=== PATIENT | male | born 1940 | race Caucasian/White ===

== ENCOUNTER → 2016-07-11 | Day surgery (SDC) | payer OTHER ==
[2016-06-30 11:56] VITALS: BMI 29.0
[~2016-07-11] VITALS: Ht 175.3 cm; Wt 90.9 kg
[~2016-07-11] MED LIST: CLR10 PO; DUTA0.5C PO; LIDOCAINE HCL 2% 2 ML VIAL (20MG/ML) ONE; LSN/10125 PO; MAGN1TAB19 PO; METF-384 PO; MIDAZOLAM HCL 1 MG/ML 2ML VIAL ONE; ONDANSETRON INJ 2 MG/ML 2 ML VIAL ONE; POTA10TA PO; PRAV40TA PO; PROPOFOL IV EMULSION 10 MG/ML 20 ML VIAL IV ONE; RIVA1TAB4 PO; SODIUM CHLORIDE 0.9% 500ML 500 ML IV ONE; TAMS0.4C38 PO
[2016-07-11 10:43] VITALS: Ht 175.3 cm; Wt 90.9 kg
--- NOTE | 2016-07-11 10:57 | Endo History and Physical ---
History & Physical Date of Service: Jul 11, 2016. Chief Complaint: SCREENING FAMILY HISTORY COLON CA Referring Physician: CLEVELAND CAMPOS History of Present Illness 76 yo CM who presents for colonoscopy secondary to family history of colon cancer in mother. Past Surgical History Hx Cardiac Surgery: No Hx Internal Defibrillator: No Hx Pacemaker: No Hx Abdominal Surgery: No Hx of Implantable Prosthesis: No Hx Post-Op Nausea and Vomiting: No Hx Cancer Surgery: No Hx Thoracic Surgery: No Hx Orthopedic: No Hx Urinary Tract Surgery: No Family History Colon CA Social History Smoking Status: Never Smoker Hx Substance Use: No Hx Alcohol Use: Yes (1 BEER/DAY) Allergies Coded Allergies: No Known Allergies (Unverified , 07/11/16) Current Medications Reported Home Medications Medications Dose Route/Sig Max Daily Dose Days Date Category Claritin (Loratadine) 10 Mg Tab 10 Mg PO QAM 06/30/16 Reported Xarelto (Rivaroxaban) 20 Mg Tab 20 Mg PO HS 06/30/16 Reported Flomax (Tamsulosin Hcl) 0.4 Mg Cap 0.4 Mg PO HS 06/30/16 Reported Pravachol (Pravastatin Sodium) 40 Mg Tab 1 Tab PO HS 06/30/16 Reported K-Tabs (Potassium Chloride) 10 Meq Tab 1 Tab PO HS 06/30/16 Reported Glucophage (Metformin Hcl) 1,000 Mg Tab 1,000 Mg PO QAM 06/30/16 Reported Magnesium Oxide (Magnesium Oxide (Mg Supplement) 400 Mg Tab 1 Tab PO QAM 06/30/16 Reported Lisinopril/Hctz 10/12.5 Mg (HCTZ/Lisinopril) 1 Ea Tab 1 Tab PO QAM 06/30/16 Reported Avodart (Dutasteride) 0.5 Mg Cap 0.5 Mg PO HS 06/30/16 Reported Vital Signs Weight (Kilograms): 90.91 Height (Feet): 5 Height (Inches): 9 Date Time Temp Pulse Resp B/P Pulse Ox O2 Delivery O2 Flow Rate FiO2 07/11/16 10:49 36.6 67 18 185/83 95 Room Air Physical Exam General Appearance: WD/WN, no apparent distress Respiratory/Chest: Auscultation: breath sounds normal Cardiovascular: Heart Auscultation: RRR Abdomen: Bowel Sounds: normal Inspection & Palpation: soft, non-distended, no tenderness, guarding & rebound Assessment and Plan Assessment: 76 yo CM who presents for colonoscopy secondary to family history of colon cancer in mother. Plan: Proceed with colonoscopy.
--- NOTE | 2016-07-11 11:44 | Discharge Instructions ---
Endoscopy Patient Instructions Date / Procedure(s) Performed Jul 11, 2016. Colonoscopy Allergy Information Coded Allergies: No Known Allergies (Unverified , 07/11/16) Discharge Date / Findings Jul 11, 2016. Colon polyp External hemorrhoids Medication Instructions Stopped Medication(s): METFORMIN XARELTO OK to resume all medications today as prescribed Reported Home Medications Medications Dose Route/Sig Max Daily Dose Days Date Category Claritin (Loratadine) 10 Mg Tab 10 Mg PO QAM 06/30/16 Reported Xarelto (Rivaroxaban) 20 Mg Tab 20 Mg PO HS 06/30/16 Reported Flomax (Tamsulosin Hcl) 0.4 Mg Cap 0.4 Mg PO HS 06/30/16 Reported Pravachol (Pravastatin Sodium) 40 Mg Tab 1 Tab PO HS 06/30/16 Reported K-Tabs (Potassium Chloride) 10 Meq Tab 1 Tab PO HS 06/30/16 Reported Glucophage (Metformin Hcl) 1,000 Mg Tab 1,000 Mg PO QAM 06/30/16 Reported Magnesium Oxide (Magnesium Oxide (Mg Supplement) 400 Mg Tab 1 Tab PO QAM 06/30/16 Reported Lisinopril/Hctz 10/12.5 Mg (HCTZ/Lisinopril) 1 Ea Tab 1 Tab PO QAM 06/30/16 Reported Avodart (Dutasteride) 0.5 Mg Cap 0.5 Mg PO HS 06/30/16 Reported Provider Instructions Activity Restrictions - No exercising or heavy lifting for 24 hours. - Do not drink alcohol the day of the procedure. - Do not drive a car or operate machinery until the day after the procedure. - Do not make any important decisions or sign important papers in 24 hours after the procedure. Following Day: - Return to full activity which may include returning to work/school. Diet Start your diet with liquids and light foods (jello, soup, juice, toast). Then eat your usual diet if not nauseated. Treatment For Common After Affects For mild abdominal pain, bloating, or excessive gas: - Rest - Eat lightly - Lie on right side Follow-Up Information Follow-up with CLEVELAND CAMPOS as scheduled Anesthesia Information What You Should Know You have had a procedure that required some medicine to reduce anxiety and discomfort. This treatment is called moderate sedation. After receiving the treatment, you may be sleepy, but you will be able to breathe on your own. The effects of the treatment may last for several hours. Follow these instructions along with Activity/Diet recommendations noted above: * Do NOT do anything where dizziness or clumsiness would be dangerous. * Rest quietly at home today, then you can be up and about tomorrow. * Have a responsible person stay with you the rest of today. * You may have had an I.V. today. If so, you may take the dressing off later today. Recommendations Call your doctor if: * Trouble breathing * Continuous vomiting for more than 24 hours * Temperature above 101 degrees * Severe abdominal pain or bloating * Pain not relieved by pain medicine ordered * There is increased drainage or redness from any incision * A large amount of rectal bleeding greater than 2-3 tablespoons. (If you had a polyp/s removed or have hemorrhoids, a small amount of blood - from the rectum is to be expected.) * You have any unanswered questions or concerns. IN THE EVENT OF A SERIOUS EMERGENCY, GO TO THE NEAREST EMERGENCY ROOM Your discharge instructions were prepared by provider Salvatore Silva. Patient Instructions Signature Page Steven Johnson Patient (or Guardian) Signature/Date: I have read and understand the instructions given to me by my caregivers. Caregiver/RN/Doctor Signature/Date: The above-named patient and/or guardian has received patient instructions on this date. + Original Patient Signature Page (only) stays with chart. Please make copy for patient.
--- NOTE | 2016-07-11 11:48 | GI REPORT ---
Procedure Date: 07/11/2016 11:20 AM Procedure: Colonoscopy Indications: Family history of colon cancer in a first-degree relative Medicines: Monitored Anesthesia Care Complications: No immediate complications. Estimated Blood Loss: Estimated blood loss: none. Procedure: Pre-Anesthesia Assessment: - Prior to the procedure, a History and Physical was performed, and patient medications and allergies were reviewed. The patient's tolerance of previous anesthesia was also reviewed. The risks and benefits of the procedure and the sedation options and risks were discussed with the patient. All questions were answered, and informed consent was obtained. Prior Anticoagulants: The patient has taken Xarelto (rivaroxaban), last dose was 2 days prior to procedure. ASA Grade Assessment: II - A patient with mild systemic disease. After reviewing the risks and benefits, the patient was deemed in satisfactory condition to undergo the procedure. After I obtained informed consent, the scope was passed under direct vision. Throughout the procedure, the patient's blood pressure, pulse, and oxygen saturations were monitored continuously. The scope was introduced through the anus and advanced to the terminal ileum. The colonoscopy was performed without difficulty. The patient tolerated the procedure well. The quality of the bowel preparation was good. The terminal ileum, ileocecal valve, appendiceal orifice, and rectum were photographed. Findings: A 6 mm polyp was found in the transverse colon. The polyp was sessile. The polyp was removed with a hot snare. Resection and retrieval were complete. Non-bleeding external hemorrhoids were found during perianal exam. The hemorrhoids were medium-sized. Impression: - One 6 mm polyp in the transverse colon, removed with a hot snare. Resected and retrieved. - Non-bleeding external hemorrhoids. Recommendation: - Resume previous diet. - Continue present medications. - Repeat colonoscopy for surveillance based on pathology results. - Return to primary care physician as previously scheduled. Salvatore Silva, DO 07/11/2016 11:48:29 AM This report has been signed electronically. Note Initiated On: 07/11/2016 11:20 AM I attest to the content of the Intraoperative Record and orders documented therein, exceptions below
[2016-07-11 12:10] VITALS: BP 143/75; PULSE 58; O2SAT 93
--- NOTE | 2016-07-11 12:34 | Anesthesiology Progress Note ---
Anesthesia Post Op Note Date & Time Jul 11, 2016 at 12:34 Vital Signs Pain Intensity: 0 Vital Signs Past 12 Hours Date Time Temp Pulse Resp B/P Pulse Ox O2 Delivery O2 Flow Rate FiO2 07/11/16 12:10 58 16 143/75 93 Room Air 07/11/16 11:55 55 16 129/73 93 Room Air 07/11/16 11:40 55 16 112/59 93 Room Air 07/11/16 10:49 36.6 67 18 185/83 95 Room Air Notes Mental Status: alert / awake / arousable, participated in evaluation Pt Amnestic to Procedure: Yes Nausea / Vomiting: adequately controlled Pain: adequately controlled Airway Patency, RR, SpO2: stable & adequate BP & HR: stable & adequate Hydration State: stable & adequate Anesthetic Complications: no major complications apparent
== END | disposition home or self-care (01) ==
LOC: C.GI 10:07
PROVIDERS: ATTEND Internal Medicine
DX: Z12.11 Encounter for screening for malignant neoplasm of colon (principal); D12.3 Benign neoplasm of transverse colon; K64.8 Other hemorrhoids; Z80.0 Family history of malignant neoplasm of digestive organs

== ENCOUNTER → 2016-11-16 | Outpatient (CLI) | payer OTHER ==
[~2016-11-16] MED LIST changes: -LIDOCAINE HCL 2% 2 ML VIAL (20MG/ML) ONE; -MIDAZOLAM HCL 1 MG/ML 2ML VIAL ONE; -ONDANSETRON INJ 2 MG/ML 2 ML VIAL ONE; -PROPOFOL IV EMULSION 10 MG/ML 20 ML VIAL IV ONE; -SODIUM CHLORIDE 0.9% 500ML 500 ML IV ONE
[2016-11-16 11:26] LABS: ALT/SGPT 22 U/L (12-78); AST/SGOT 18 U/L (15-37); BLOOD UREA NITROGEN 21 mg/dl (7-18); BUN/CREATININE RATIO 19.5 (10-20); CALCIUM 8.3 mg/dl (8.5-10.1); CARBON DIOXIDE 26 mmol/L (21-32); CHLORIDE 107 mmol/L (98-107); GLUCOSE 111 mg/dl (70-99); POTASSIUM 3.9 mmol/L (3.5-5.1); SODIUM 142 mmol/L (136-145)
[2016-11-16 11:40] LABS: ALKALINE PHOSPHATASE 51 U/L (45-117); CHOLESTEROL 166 mg/dl (0-200); CHOLESTEROL/HDL RATIO 4.6; HDL CHOLESTEROL 36 mg/dl; LDL CHOLESTEROL CALCULATED 92 mg/dl; TRIGLYCERIDES 191 mg/dl (0-150); VERY LOW DENSITY LIPOPROT CALC 38 mg/dl
[2016-11-16 11:51] LABS: ESTIMATED AVERAGE GLUCOSE 126 mg/dl; HA1C FLAG Normal (Normal)
--- NOTE | 2016-11-22 10:05 | CODING QUERY MEDICAL NECESSITY ---
SUPPORTING DIAGNOSIS NEEDED Dr. Cartwright, A supporting diagnosis is required for the test/procedure performed on this patient in order for us to be reimbursed by the patient's insurance. Please provide a supporting diagnosis for the following test/procedure listed below next to the test name along with your signature. *If there is no additional diagnosis for this patient that would support the following test/procedure please document that below next to the test/procedure. Test(s)/Procedure(s) that require a supporting diagnosis: * 70250 GLYCATED HEMOGLOBIN DIAGNOSIS: DATE OF SERVICE: 11/16/16 Provider Signature: Date: Thank you Boy Fitzgerald [facility] Information Management Once completed, please kindly fax back to [phone] For questions please call [phone]
== END | disposition home or self-care (01) ==
LOC: C.LABBC 08:32
PROVIDERS: ATTEND Family Medicine
DX: E78.5 Hyperlipidemia, unspecified (principal); I10 Essential (primary) hypertension; N40.0 Benign prostatic hyperplasia without lower urinary tract symptoms; I48.91 Unspecified atrial fibrillation; R73.03 Prediabetes

== ENCOUNTER → 2017-06-29 | Outpatient (CLI) | payer OTHER ==
--- NOTE | 2017-06-29 11:07 | DIAGNOSTIC IMAGING REPORT ---
RENAL ULTRASOUND HISTORY: R33.9 Incomplete bladder [id number] COMPARISON: None. FINDINGS: Right kidney: 11.1 cm. No hydronephrosis. Normal corticomedullary differentiation and cortical thickness. Left kidney: 11.4 cm. No hydronephrosis. Normal corticomedullary differentiation and cortical thickness. Bladder: No bladder wall thickening. The bilateral ureteral jets were identified. Prevoid volume of the bladder is 350 cc. Postvoid residual is 314 cc. The prostate is enlarged measuring 4.8 cm. IMPRESSION: 1. Normal kidneys. No hydronephrosis. 2. Post void residual of 314 cc. Electronically signed by: Claus Greer M.D. 06/29/2017 11:05 AM Dictated Date/Time: 06/29/2017 11:04 AM
== END | disposition home or self-care (01) ==
LOC: C.ULTR 10:35
PROVIDERS: ATTEND Urology
DX: R33.9 Retention of urine, unspecified (principal)

== ENCOUNTER → 2017-07-07 | Outpatient (CLI) | payer OTHER | END | disposition home or self-care (01) | LOC: C.LABBC 11:19 | PROVIDERS: ATTEND Urology | DX: R33.9 Retention of urine, unspecified (principal) ==

== ENCOUNTER → 2017-09-07 | Outpatient (CLI) | payer OTHER ==
[2017-09-07 13:35] LABS: BASO % 0.5 %; BASO ABS # 0.04 K/uL (0-0.2); EOS % 3.2 %; EOS ABS # 0.28 K/uL (0-0.5); HEMATOCRIT 46.3 % (42-52); HEMOGLOBIN 15.8 g/dL (14.0-18.0); IG# 0.02 K/uL (0.00-0.02); LYMPH % 41.6 %; LYMPH ABS # 3.64 K/uL (1.2-3.4); MEAN CORPUSCULAR HEMOGLOBIN 31.4 pg (25-34); MEAN CORPUSCULAR HGB CONC 34.1 g/dl (32-36); MEAN PLATELET VOLUME 11.1 fL (7.4-10.4); MONO % 10.3 %; NEUT % 44.2 %; NEUT ABS # 3.86 K/uL (1.4-6.5); PLATELET COUNT 200 K/uL (130-400); RED CELL DISTRIBUTION WIDTH CV 13.4 % (11.5-14.5); WHITE BLOOD COUNT 8.74 K/uL (4.8-10.8)
[2017-09-07 14:11] LABS: ALBUMIN 3.4 gm/dl (3.4-5.0); ALT/SGPT 22 U/L (12-78); AST/SGOT 15 U/L (15-37); BLOOD UREA NITROGEN 25 mg/dl (7-18); CALCIUM 8.3 mg/dl (8.5-10.1); CARBON DIOXIDE 26 mmol/L (21-32); CREATININE 1.08 mg/dl (0.60-1.40); GLUCOSE 119 mg/dl (70-99); POTASSIUM 4.2 mmol/L (3.5-5.1); SODIUM 138 mmol/L (136-145)
[2017-09-07 14:15] LABS: HEMOGLOBIN A1C 6.2 % (4.5-5.6)
[2017-09-07 14:20] LABS: ALKALINE PHOSPHATASE 50 U/L (45-117); CHOLESTEROL 131 mg/dl (0-200); LDL CHOLESTEROL CALCULATED 70 mg/dl; TOTAL PROTEIN 6.9 gm/dl (6.4-8.2)
== END | disposition home or self-care (01) ==
LOC: C.LABBC 10:29
PROVIDERS: ATTEND Nurse Practitioner Family
DX: E78.5 Hyperlipidemia, unspecified (principal); I10 Essential (primary) hypertension; E88.81 Metabolic syndrome and other insulin resistance; I48.91 Unspecified atrial fibrillation; R79.0 Abnormal level of blood mineral; R73.03 Prediabetes

== ENCOUNTER 2022-12-16 08:58 | Inpatient (IN) ==
[2022-12-16] MEDS ORDERED: ALBUT/IPRATROP 3MG/0.5MG NEB 3 ML VIAL NEB STA ×2 (09:50→11:39)
[2022-12-16 09:52] LABS: Basophils # (auto) 0.05 K/uL (0-0.2); Basophils % (auto) 0.3 %; Eosinophils # (auto) 0.08 K/uL (0-0.50); Eosinophils % (auto) 0.5 %; Hematocrit (blood only) 44.2 % (42.0-52.0); Hemoglobin 15.3 g/dl (14.0-18.0); Immature Granulocytes # (auto) 0.06 K/uL (0.01-0.20); Immature Granulocytes % (auto) 0.4 %; Lymphocytes # (auto) 2.56 K/uL (1.2-3.4); Lymphocytes % (auto) 17.1 %; Mean Corpuscular Hemoglobin 31.2 pg (25.0-34.0); Mean Corpuscular Hgb Conc 34.6 g/dL (32.0-36.0); Monocytes # (auto) 1.76 K/uL (0.11-0.59); Monocytes % (auto) 11.8 %; Neutrophils # (auto) 10.46 K/uL (1.40-6.50); Neutrophils % (auto) 69.9 %; Platelet Count 204 K/uL (130-400); RDW Coefficient of Variation 13.9 % (11.5-14.5); RDW Standard Deviation 46.1 fL (36.4-46.3); Red Blood Count 4.91 M/uL (4.70-6.10); White Blood Count 14.97 K/ul (4.8-10.8)
--- NOTE | 2022-12-16 10:10 | XRay Report ---
XR chest 1V portable HISTORY: 82 years-old Male Dyspnea acute shortness of breath COMPARISON: 07/15/2022, 03/31/2022 TECHNIQUE: AP view of the chest FINDINGS: Cardiac mediastinal and hilar silhouettes are unchanged. Subcentimeter calcified granuloma of the rig ht upper lobe. Azygous lobe and fissure. Chronic right hemidiaphragmatic elevation. No pneumothorax, pleural effusion, airspace consolidation or pulmonary edema. Spondylotic spurring of the spine. IMPRESSION: No acute process. ACT 112: Negative or not required by law. The above report was generated using voice recognition software. It may contain grammatical, syntax o r spelling errors. Electronically signed by: Molina Samuel M.D. 12/16/2022 10:09 AM
[2022-12-16 10:14] LABS: Alanine Aminotransferase 14 U/L (7-52); Albumin Globulin Ratio 1.2 (0.9-2); Albumin Level 4.1 gm/dl (3.4-5.0); Alkaline Phosphatase 50 U/L (34-104); Anion Gap 9 (3-11); BUN Creatinine Ratio 26.6 (10-20); Blood Urea Nitrogen 25 mg/dl (6-23); Calcium 9.1 mg/dl (8.6-10.3); Carbon Dioxide 26 mmol/L (21-32); Chloride 104 mmol/L (98-107); Creatinine Clr Calc Pharmacy 61.6 ml/min; Est GFR (African American) 87.8 ml/min; Est GFR (Non-African American) 75.7 ml/min; Globulin 3.5 gm/dl (2.5-4.0); Glucose 132 mg/dl (70-99(Fasting)); Magnesium 1.9 mg/dl (1.7-2.4); Sodium 139 mmol/L (136-145); Total Protein 7.6 gm/dl (6.0-8.3)
[2022-12-16] MEDS ORDERED: OPTIRAY 320 125ml IV ONE (10:56)
[2022-12-16 10:58] LABS: Adenovirus PCR Not Detected (NotDetected); Bordetella parapertussis PCR Not Detected (NotDetected); Bordetella pertussis PCR Not Detected (NotDetected); Chlamydia pneumoniae PCR Not Detected (NotDetected); Coronavirus 229E PCR Not Detected (NotDetected); Coronavirus CoV-2 (COVID19)PCR Not Detected (NotDetected); Coronavirus HKU1 PCR Not Detected (NotDetected); Coronavirus NL63 PCR Not Detected (NotDetected); Coronavirus OC43PCR Not Detected (NotDetected); Human Metapneumovirus PCR Not Detected (NotDetected); Influenza A PCR Not Detected (NotDetected); Influenza B PCR Not Detected (NotDetected); Mycoplasma pneumoniae PCR Not Detected (NotDetected); Parainfluenza Virus 1 PCR Not Detected (NotDetected); Parainfluenza Virus 2 PCR Not Detected (NotDetected); Parainfluenza Virus 3 PCR Not Detected (NotDetected); Parainfluenza Virus 4 PCR Not Detected (NotDetected); Respiratory Syncytial VirusPCR Not Detected (NotDetected); Rhinovirus/Enterovirus PCR Not Detected (NotDetected)
[2022-12-16 11:06] LABS: Potassium 3.9 mmol/L (3.5-5.1)
--- NOTE | 2022-12-16 11:09 | CT Scan Report ---
CT angio chest PE protocol CLINICAL HISTORY: PE vs PNA, cough, pain R side TECHNIQUE: Multidetector row helical CT of the chest was performed with angiographic protocol. Brown l and sagittal reformations were obtained. Coronal and sagittal MIPS were obtained from the axial sonu a set and were submitted for review. Automated dose lowering techniques and/or adjustment according to patient size were utilized for this exam. CT DOSE: 764.85 mGy.cm Comparison: Comparison is made to CTA chest 03/31/2022 FINDINGS: Lungs and pleura: Atelectasis versus scarring is seen in the dependent portions of the lungs. Bronchi al wall thickening is seen. Calcified granulomata are seen. Atelectasis is seen in the lower lungs. Heart and pericardium: Heart size is normal. No pericardial effusion. Vessels: No evidence of pulmonary embolism. There is mild atherosclerotic disease. Mediastinum and veronique: Subcentimeter lymph nodes are seen. Chest wall and lower neck: Unremarkable. Abdomen: Unremarkable. Bones: Degenerative changes in the thoracic spine. IMPRESSION: No acute abnormality and in particular no evidence of pulmonary embolus. ACT 112: Negative or not required by law. Electronically signed by: Rell Almazan M.D. 12/16/2022 11:08 AM
[2022-12-16 12:02] LABS: Troponin I High Sensitivity 10.1 pg/ml (0-20)
[2022-12-16] MEDS ORDERED: AZITHROMYCIN 250 MG TAB PO ONE (12:05)
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
[2022-12-16] MEDS ORDERED: GLUCOSE 40% GEL 15 GM TUBE PO PRN (12:50)
[2022-12-16] MEDS ORDERED: DEXTROSE 50% 50 ML SYRINGE IV PRN (12:50)
[2022-12-16] MEDS ORDERED: GLUCOSE 10 TAB/TUBE PO PRN (12:50)
[2022-12-16] MEDS ORDERED: GLUCAGON FOR INJ 1 MG VIAL SQ PRN (12:50)
[2022-12-16] MEDS ORDERED: PHARMACY GLYCEMIC MGMT CONSULT PRN (12:50)
[2022-12-16] MEDS ORDERED: CARBOHYDRATES FOR HYPOGLYCEMIA PO PRN (12:50)
[2022-12-16] MEDS ORDERED: FORMOTEROL 20 MCG/2 ML VIAL NEB STA (13:13)
[2022-12-16] MEDS ORDERED: BUDESONIDE 0.5 MG/2 ML VIAL (PULMICORT) NEB STA (13:13)
[2022-12-16] MEDS ORDERED: METOPROLOL TARTRATE 25 MG TAB PO STA (13:21)
[2022-12-16 14:22] LABS: Appearance Urine Clear (Clear); Bilirubin Urine Negative (Negative); Blood Urine Negative (Negative); Color Urine Yellow; Glucose Urine UA Negative (Negative); Ketones Urine Trace (Negative); Leukocyte Esterase Urine Negative (Negative); Nitrite Urine Negative (Negative); Protein Urine Negative (Negative); Specific Gravity Urine 1.019 (1.000-1.030); Urobilinogen Urine Negative (Negative); pH Urine 5.5 (4.5-7.5)
[2022-12-16] MEDS ORDERED: ACETAMINOPHEN 325 MG TAB PO PRN (14:58)
--- NOTE | 2022-12-16 15:18 | Pharmacy Report ---
Pharmacy Glycemic Short Note 2 - Date of Service December 16, 2022 - Glycemic Short BSG Results (Last 24 hours): 12/16/22 09:15 Glucose 132 H OUTPATIENT ANTIDIABETIC REGIMEN: * metformin 500 bid ASSESSMENT: * Patient admitted with hypoxia, started on steroids. Type 2 diabetic managed only on metformin at home. Plan to start Lantus 0.2 unit/kg daily to be given with IV solumedrol 40 mg daily * Will start novolog stress 2/3 dosing for now PLAN FOR INPATIENT GLYCEMIC CONTROL: * Hold outpatient oral diabetes medications * Basal insulin * Lantus 15 units daily * Bolus insulin * NovoLog per scale ACHS or Q6hrs while NPO * Goal Range: Low 110 mg/dL - High 160 mg/dL * Correction Factor: 25 mg/dL/unit * Nutritional / Prandial insulin per carb ratio of 1 unit per 9 grams CHO consumed
[2022-12-16] MEDS: ALBUT/IPRATROP 3MG/0.5MG NEB 3 ML VIAL NEB SCH ×2 (15:54→19:48)
--- NOTE | 2022-12-16 15:59 | Emergency Department Note ---
Impression & Plan Respiratory failure with hypoxia, Leukocytosis ED Provider Note CHIEF COMPLAINT: Shortness of breath, right-sided chest pain HISTORY OF PRESENT ILLNESS: This 82-year-old male patient with past medical history of type 2 diabetes, atrial fibrillation on chronic anticoagulation, congestive heart failure presents to the emergency department with complaints of worsening right-sided discomfort with deep inspiration over the last 24 hours. Patient states he has had a deep cough that has been "dry." He does have an inhaler at home and cannot remember trying to use it for the symptoms. Patient denies any fevers or pain radiating into the arms of the jaw. He denies a history of COPD and denies smoking cigarettes. He has not noticed any weight gain or ankle swelling. Patient denies wearing oxygen at home. REVIEW OF SYSTEMS: A review of systems was performed with positives and pertin ent negatives listed in the history of present illness. 10 systems were reviewed and are otherwise negative. ALLERGIES: see below MEDICATIONS: see below PMH: see below SOCIAL HISTORY: see below DDx: Reactive airway disease, pneumonia, pneumothorax, COPD, CHF, infections, cardiac ischemia, pulmonary embolism, musculoskeletal, gastrointestinal, as well as other pathologies. PHYSICAL EXAM: Vital signs reviewed. General: Well-appearing 82 yo male, in no significant distress. HEENT: No scleral icterus, PERRLA, neck supple. Atraumatic. Cardiovascular: Regular rate and rhythm, no extra sounds. Pulmonary: Clear to auscultation bilaterally, normal work of breathing. Abdomen: Soft, nontender, nondistended, positive bowel sounds. Musculoskeletal: Atraumatic, no peripheral edema. Neurologic: Patient awake alert and oriented x 3, speech is clear Skin: Warm, dry, no rash EMERGENCY DEPARTMENT COURSE/MDM: This patient was evaluated and appeared to be in no distress. IV access was obtained and laboratory work was drawn. The patient was placed on the statistical assistant. Patient was hydrated with normal saline solution. Chest x-ray was performed and is negative for acute process. Laboratory work is concerning for leukocytosis of 15. Respiratory BioFire panel is negative. CT imaging of the chest was performed and is negative for PE and reveals evidence of atelectasis, no infiltrate. Patient was medicated with p.o. azithromycin 500 mg thinking perhaps he could be discharged at some point. The patient then did desaturate x2 on room air. He was given IV Solu-Medrol as well as DuoNeb treatment x2. Given the patient's shortness of breath, leukocytosis and desaturation on room air, the patient's case was discussed with the hospitalist service to evaluate for further management. MONITORING: An order for cardiac monitoring was placed and the patient is noted to be in a atrial fibrillation at 71 beats per minute. RADIOLOGY: Chest x-ray to my interpretation reveals no evidence of focal lung consolidation or failure. EKG: To my interpretation reveals atrial fibrillation at 79 bpm. Left axis deviation, right bundle branch block, QTc of 573. When compared to previous dated July 15, 2022, nonspecific ST change in the anterior leads are negative. QTc is prolonged DISPOSITION: Admission Past Med/Surg History Medical History Atrial fibrillation BPH with obstruction/lower urinary tract symptoms Cardiac murmur Elevated prostate specific antigen (PSA) H/O homocysteinuria History of colon polyps Hypokalemia Tachycardia Type 2 diabetes mellitus Surgical History H/O colonoscopy H/O wisdom tooth extraction History of tonsillectomy Hx of prostate biopsy Family History Mother Colorectal cancer Aunt Diabetes Grandmother (Maternal) Diabetes Other No family history of adverse response to anesthesia Denies family history of Ovarian cancer Prostate cancer Myocardial infarction Breast cancer Social History Smoking Status: Never smoker Second Hand Exposure: No; Do You Dip or Chew Tobacco: No; Hx Alcohol Use: Yes Alcohol type: beer Alcohol Intake Frequency: 2-3 x/Week Hx Substance Use: No Preferred Language: Slovenian Communication Ability: Effective Visual Impairment: No Limitations Hearing Ability: Normal 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 Beliefs That Will Affect Care: None marital status: Current Living Situation: Spouse current occupational status: retired How many Children do You have: 4 Feels Safe at Home: No Is there a partner from a previous relationship who is making you feel unsafe now?: No Childhood Exposure to Second-Hand Smoke: Yes Diet: regular caffeine: Yes during the past year weight has: remained stable Dental Care, Regularly: Yes Physical Activity Frequency: Daily Seatbelt Use: always Sunscreen Use: Yes Assistive Devices: Glasses Allergies Allergies Allergy/AdvReac Type Severity Reaction Status Date / Time No Known Allergies Allergy Verified 12/16/22 11:43 Home Meds Home Medications Medication Instructions Recorded Confirmed acetaminophen 500 mg tablet 500 mg PO QAM PRN Pain 08/19/21 12/16/22 furosemide 20 mg tablet 20 mg PO DAILY 12/16/22 12/16/22 magnesium oxide 400 mg (241.3 mg 400 mg PO QAM 12/16/22 12/16/22 magnesium) tablet pravastatin 40 mg tablet 40 mg PO HS 12/16/22 12/16/22 rivaroxaban 20 mg tablet (Xarelto) 20 mg PO HS 12/16/22 12/16/22 tamsulosin 0.4 mg capsule 0.8 mg PO HS 12/16/22 12/16/22 Previous Rx's Medication Instructions Recorded diclofenac sodium 1 % topical gel 4 g topical QID PRN Joint Pain 09/16/20 (Voltaren) #100 grams albuterol sulfate 90 mcg/actuation 2 puff inhalation Q6H PRN 01/11/22 aerosol inhaler (ProAir HFA) shortness of breath or wheezing #8.5 grams famotidine 40 mg tablet (Pepcid) 40 mg PO BID #180 tabs 02/15/22 metoprolol tartrate 25 mg tablet 25 mg PO BID #180 tabs 04/04/22 lisinopril 20 mg tablet 20 mg PO BID #180 tabs 05/16/22 ipratropium bromide 21 mcg (0.03 2 spray intranasal TID #90 mL 07/18/22 %) nasal spray dutasteride 0.5 mg capsule 0.5 mg PO DAILY #90 caps 08/11/22 metformin 500 mg tablet 500 mg PO BID #180 tabs 11/08/22 fexofenadine 180 mg tablet 180 mg PO DAILY #30 tabs 11/21/22 (Sunni Allergy) amoxicillin 875 mg-potassium 1 tab PO BID #10 tabs 12/18/22 clavulanate 125 mg tablet prednisone 10 mg tablet 10 mg PO DAILY #20 tabs 12/18/22 potassium chloride 10 mEq 10 meq PO QAM #90 tabs 12/19/22 tablet,extended release Results & Data (ED) Vital Signs Vital Signs - 24 hr 12/16/22 09:06 12/16/22 09:45 12/16/22 10:06 Temperature 37.2 C Temperature Source Oral Pulse Rate 88 Pulse Rate from SpO2 Sensor Pulse Rhythm Regular Pulse Strength Normal Respiratory Rate 24 Respiratory Effort / Characteristics Non-Labored Spontaneous Non-Labored Spontaneous Short of Breath Respiratory Depth Normal Respiratory Pattern Tachypnea Blood Pressure 158/80 H Blood Pressure Mean 106 Blood Pressure Position Sitting Pulse Oximetry 92 88 L Oxygen Delivery Method Room Air Room Air Oxygen Flow Rate Sepsis Recent Fever Within 48 Hours No Sepsis New/Unexplained Change in Mental Status No Sepsis Action Taken by Nursing No Action Required Oxygen Flow Rate - Titration 2 Pulse Oximetry Post Tiitration 93 12/16/22 09:47 12/16/22 10:39 12/16/22 11:00 Temperature Temperature Source Pulse Rate 74 75 Pulse Rate from SpO2 Sensor 71 Pulse Rhythm Pulse Strength Respiratory Rate 28 H Respiratory Effort / Characteristics Respiratory Depth Respiratory Pattern Blood Pressure 140/67 Blood Pressure Mean 91 Blood Pressure Position Pulse Oximetry 92 97 Oxygen Delivery Method Nasal Cannula Nasal Cannula Oxygen Flow Rate 2 2 Sepsis Recent Fever Within 48 Hours Sepsis New/Unexplained Change in Mental Status Sepsis Action Taken by Nursing Oxygen Flow Rate - Titration Pulse Oximetry Post Tiitration 12/16/22 10:10 12/16/22 10:20 12/16/22 10:30 Temperature Temperature Source Pulse Rate 67 75 74 Pulse Rate from SpO2 Sensor 67 74 69 Pulse Rhythm Pulse Strength Respiratory Rate 18 17 17 Respiratory Effort / Characteristics Respiratory Depth Respiratory Pattern Blood Pressure Blood Pressure Mean Blood Pressure Position Pulse Oximetry 94 94 96 Oxygen Delivery Method Oxygen Flow Rate Sepsis Recent Fever Within 48 Hours Sepsis New/Unexplained Change in Mental Status Sepsis Action Taken by Nursing Oxygen Flow Rate - Titration Pulse Oximetry Post Tiitration 12/16/22 10:40 12/16/22 11:00 12/16/22 11:10 Temperature Temperature Source Pulse Rate 79 78 74 Pulse Rate from SpO2 Sensor 79 77 82 Pulse Rhythm Pulse Strength Respiratory Rate 17 17 17 Respiratory Effort / Characteristics Respiratory Depth Respiratory Pattern Blood Pressure Blood Pressure Mean Blood Pressure Position Pulse Oximetry 95 95 94 Oxygen Delivery Method Oxygen Flow Rate Sepsis Recent Fever Within 48 Hours Sepsis New/Unexplained Change in Mental Status Sepsis Action Taken by Nursing Oxygen Flow Rate - Titration Pulse Oximetry Post Tiitration 12/16/22 11:20 12/16/22 11:30 12/16/22 11:32 Temperature Temperature Source Pulse Rate 68 70 83 Pulse Rate from SpO2 Sensor 72 75 89 Pulse Rhythm Pulse Strength Respiratory Rate 17 17 15 Respiratory Effort / Characteristics Respiratory Depth Respiratory Pattern Blood Pressure Blood Pressure Mean Blood Pressure Position Pulse Oximetry 95 95 95 Oxygen Delivery Method Oxygen Flow Rate Sepsis Recent Fever Within 48 Hours Sepsis New/Unexplained Change in Mental Status Sepsis Action Taken by Nursing Oxygen Flow Rate - Titration Pulse Oximetry Post Tiitration 12/16/22 11:32 12/16/22 11:40 12/16/22 11:50 Temperature Temperature Source Pulse Rate 76 72 Pulse Rate from SpO2 Sensor 85 75 Pulse Rhythm Pulse Strength Respiratory Rate 15 15 Respiratory Effort / Characteristics Respiratory Depth Respiratory Pattern Blood Pressure 138/81 Blood Pressure Mean 95 Blood Pressure Position Pulse Oximetry 93 92 Oxygen Delivery Method Oxygen Flow Rate Sepsis Recent Fever Within 48 Hours Sepsis New/Unexplained Change in Mental Status Sepsis Action Taken by Nursing Oxygen Flow Rate - Titration Pulse Oximetry Post Tiitration 12/16/22 12:00 12/16/22 12:00 12/16/22 12:10 Temperature Temperature Source Pulse Rate 73 97 H Pulse Rate from SpO2 Sensor 62 78 Pulse Rhythm Pulse Strength Respiratory Rate 12 22 Respiratory Effort / Characteristics Respiratory Depth Respiratory Pattern Blood Pressure 108/72 Blood Pressure Mean 84 Blood Pressure Position Pulse Oximetry 92 98 Oxygen Delivery Method Nasal Cannula Oxygen Flow Rate 2 Sepsis Recent Fever Within 48 Hours Sepsis New/Unexplained Change in Mental Status Sepsis Action Taken by Nursing Oxygen Flow Rate - Titration Pulse Oximetry Post Tiitration 12/16/22 12:20 Temperature Temperature Source Pulse Rate 75 Pulse Rate from SpO2 Sensor 78 Pulse Rhythm Pulse Strength Respiratory Rate 28 H Respiratory Effort / Characteristics Respiratory Depth Respiratory Pattern Blood Pressure Blood Pressure Mean Blood Pressure Position Pulse Oximetry 89 L Oxygen Delivery Method Room Air Oxygen Flow Rate Sepsis Recent Fever Within 48 Hours Sepsis New/Unexplained Change in Mental Status Sepsis Action Taken by Nursing Oxygen Flow Rate - Titration Pulse Oximetry Post Tiitration Home Medications Current Medication List: was personally reviewed by me Laboratory Data Attestation: I reviewed the patient's lab results. 12/16/22 09:15 12/16/22 10:20 Lab Results 12/16/22 12/16/22 12/16/22 Range/Units 09:15 09:15 09:41 WBC 14.97 H (4.8-10.8) K/ul RBC 4.91 (4.70-6.10) M/uL Hgb 15.3 (14.0-18.0) g/dl Hct 44.2 (42.0-52.0) % MCV 90.0 (80.0-100.0) fL MCH 31.2 (25.0-34.0) pg MCHC 34.6 (32.0-36.0) g/dL RDW Std Deviation 46.1 (36.4-46.3) fL RDW Coeff of Blanca 13.9 (11.5-14.5) % Plt Count 204 (130-400) K/uL MPV 11.0 (9.4-12.4) fL Immature Gran % (Auto) 0.4 % Neut % (Auto) 69.9 % Lymph % (Auto) 17.1 % [place] % (Auto) 11.8 % Eos % (Auto) 0.5 % Baso % (Auto) 0.3 % Neut # (Auto) 10.46 H (1.40-6.50) K/uL Lymph # (Auto) 2.56 (1.2-3.4) K/uL [place] # (Auto) 1.76 H (0.11-0.59) K/uL Eos # (Auto) 0.08 (0-0.50) K/uL Baso # (Auto) 0.05 (0-0.2) K/uL Immature Gran # (Auto) 0.06 (0.01-0.20) K/uL Sodium 139 (136-145) mmol/L Potassium TNP Chloride 104 (98-107) mmol/L Carbon Dioxide 26 (21-32) mmol/L Anion Gap 9 (3-11) BUN 25 H (6-23) mg/dl Creatinine 0.94 (0.6-1.4) mg/dl Est Cr Clr Drug Dosing 61.6 ml/min Est GFR ( Amer) 87.8 ml/min Est GFR (Non-Af Amer) 75.7 ml/min BUN/Creatinine Ratio 26.6 H (10-20) Glucose 132 H (70-99(Fasting)) mg/dl Calcium 9.1 (8.6-10.3) mg/dl Magnesium 1.9 (1.7-2.4) mg/dl Total Bilirubin 1.0 (0.2-1.0) mg/dl AST TNP ALT 14 (7-52) U/L Alkaline Phosphatase 50 (34-104) U/L Troponin I High Sens 10.1 (0-20) pg/ml B-Natriuretic Peptide 194 H (0-100) pg/ml Total Protein 7.6 (6.0-8.3) gm/dl Albumin 4.1 (3.4-5.0) gm/dl Globulin 3.5 (2.5-4.0) gm/dl Albumin/Globulin Ratio 1.2 (0.9-2) Procalcitonin Adenovirus (PCR) (NotDetected) B. pertussis DNA (PCR) (NotDetected) B.parapertussis DNA PCR (NotDetected) C. pneumoniae DNA (PCR) (NotDetected) Coronavirus OC43 (PCR) (NotDetected) Coronavirus HKU1 (PCR) (NotDetected) Coronavirus 229E (PCR) (NotDetected) SARS-CoV-2 (PCR) (NotDetected) Coronavirus NL63 (PCR) (NotDetected) Human Metapneumovir PCR (NotDetected) Influenza Type A (PCR) (NotDetected) Influenza Type B (PCR) (NotDetected) M. pneumoniae (PCR) (NotDetected) Parainfluenza 1 (PCR) (NotDetected) Parainfluenza 2 (PCR) (NotDetected) Parainfluenza 3 (PCR) (NotDetected) Parainfluenza 4 (PCR) (NotDetected) RSV (PCR) (NotDetected) Entero/Rhino (PCR) (NotDetected) 12/16/22 12/16/22 12/16/22 Range/Units 09:41 10:20 12:40 WBC (4.8-10.8) K/ul RBC (4.70-6.10) M/uL Hgb (14.0-18.0) g/dl Hct (42.0-52.0) % MCV (80.0-100.0) fL MCH (25.0-34.0) pg MCHC (32.0-36.0) g/dL RDW Std Deviation (36.4-46.3) fL RDW Coeff of Blanca (11.5-14.5) % Plt Count (130-400) K/uL MPV (9.4-12.4) fL Immature Gran % (Auto) % Neut % (Auto) % Lymph % (Auto) % [place] % (Auto) % Eos % (Auto) % Baso % (Auto) % Neut # (Auto) (1.40-6.50) K/uL Lymph # (Auto) (1.2-3.4) K/uL [place] # (Auto) (0.11-0.59) K/uL Eos # (Auto) (0-0.50) K/uL Baso # (Auto) (0-0.2) K/uL Immature Gran # (Auto) (0.01-0.20) K/uL Sodium (136-145) mmol/L Potassium 3.9 Chloride (98-107) mmol/L Carbon Dioxide (21-32) mmol/L Anion Gap (3-11) BUN (6-23) mg/dl Creatinine (0.6-1.4) mg/dl Est Cr Clr Drug Dosing ml/min Est GFR ( Amer) ml/min Est GFR (Non-Af Amer) ml/min BUN/Creatinine Ratio (10-20) Glucose (70-99(Fasting)) mg/dl Calcium (8.6-10.3) mg/dl Magnesium (1.7-2.4) mg/dl Total Bilirubin (0.2-1.0) mg/dl AST 12 L ALT (7-52) U/L Alkaline Phosphatase (34-104) U/L Troponin I High Sens (0-20) pg/ml B-Natriuretic Peptide (0-100) pg/ml Total Protein (6.0-8.3) gm/dl Albumin (3.4-5.0) gm/dl Globulin (2.5-4.0) gm/dl Albumin/Globulin Ratio (0.9-2) Procalcitonin Cancelled Adenovirus (PCR) Not Detected (NotDetected) B. pertussis DNA (PCR) Not Detected (NotDetected) B.parapertussis DNA PCR Not Detected (NotDetected) C. pneumoniae DNA (PCR) Not Detected (NotDetected) Coronavirus OC43 (PCR) Not Detected (NotDetected) Coronavirus HKU1 (PCR) Not Detected (NotDetected) Coronavirus 229E (PCR) Not Detected (NotDetected) SARS-CoV-2 (PCR) Not Detected (NotDetected) Coronavirus NL63 (PCR) Not Detected (NotDetected) Human Metapneumovir PCR Not Detected (NotDetected) Influenza Type A (PCR) Not Detected (NotDetected) Influenza Type B (PCR) Not Detected (NotDetected) M. pneumoniae (PCR) Not Detected (NotDetected) Parainfluenza 1 (PCR) Not Detected (NotDetected) Parainfluenza 2 (PCR) Not Detected (NotDetected) Parainfluenza 3 (PCR) Not Detected (NotDetected) Parainfluenza 4 (PCR) Not Detected (NotDetected) RSV (PCR) Not Detected (NotDetected) Entero/Rhino (PCR) Not Detected (NotDetected) Administered Medications Discontinued Medications Albuterol (Albut/Ipratrop 3mg/0.5mg Neb 3 Ml Vial) 3 ml NEB NOW STA; Protocol Stop: 12/16/22 09:51 Last Admin: 12/16/22 10:19 Dose: 3 ml Documented By: PETE Albuterol (Albut/Ipratrop 3mg/0.5mg Neb 3 Ml Vial) 3 ml NEB NOW STA; Protocol Stop: 12/16/22 11:40 Last Admin: 12/16/22 11:58 Dose: 3 ml Documented By: MANA Albuterol (Albut/Ipratrop 3mg/0.5mg Neb 3 Ml Vial) 3 [facility]; Protocol Stop: 01/15/23 15:59 Last Admin: 12/18/22 06:57 Dose: Not Given Documented By: Admin: 12/17/22 19:31 Dose: Not Given Documented By: Admin: 12/17/22 16:27 Dose: 3 ml Documented By: [id number] Admin: 12/17/22 11:08 Dose: 3 ml Documented By: Admin: 12/17/22 06:53 Dose: Not Given Documented By: Admin: 12/16/22 19:48 Dose: Not Given Documented By: Admin: 12/16/22 15:54 Dose: 3 ml Documented By: ZARA Azithromycin (Azithromycin 250 Mg Tab) 500 mg PO NOW ONE Stop: 12/16/22 12:06 Last Admin: 12/16/22 12:27 Dose: 500 mg Documented By: MANA Azithromycin (Azithromycin 250 Mg Tab) 500 mg PO QAM HEMANT Stop: 12/19/22 08:59 Last Admin: 12/18/22 08:23 Dose: 500 mg Documented By: Admin: 12/17/22 09:17 Dose: 500 mg Documented By: ROWDY Budesonide (Budesonide 0.5 Mg/2 Ml Vial (Pulmicort)) 0.5 mg NEB NOW STA Stop: 12/16/22 13:14 Last Admin: 12/16/22 15:03 Dose: Not Given Documented By: ROWDY Budesonide (Budesonide 0.5 Mg/2 Ml Vial (Pulmicort)) 0.5 mg NEB BIDR HEMANT Stop: 01/15/23 18:59 Last Admin: 12/18/22 06:57 Dose: 0.5 mg Documented By: Admin: 12/17/22 19:31 Dose: 0.5 mg Documented By: Admin: 12/17/22 06:53 Dose: 0.5 mg Documented By: Admin: 12/16/22 19:45 Dose: 0.5 mg Documented By: NATALIA Cefuroxime Axetil (Cefuroxime Axetil 500 Mg Tab) 500 mg PO BID HEMANT Stop: 12/25/22 12:59 Last Admin: 12/18/22 12:08 Dose: 500 mg Documented By: KATIA Famotidine (Famotidine 40 Mg Tablet) 40 mg PO BID HEMANT Stop: 01/15/23 20:59 Last Admin: 12/18/22 08:23 Dose: 40 mg Documented By: Admin: 12/17/22 21:22 Dose: 40 mg Documented By: Admin: 12/17/22 09:16 Dose: 40 mg Documented By: Admin: 12/16/22 22:01 Dose: 40 mg Documented By: DION Fexofenadine HCl (Fexofenadine Hcl 180 Mg Tab) 180 mg PO DAILY HEMANT Stop: 01/16/23 08:59 Last Admin: 12/18/22 08:23 Dose: 180 mg Documented By: Admin: 12/17/22 09:18 Dose: 180 mg Documented By: ROWDY Finasteride (Finasteride 5 Mg Tab) 5 mg PO DAILY [facility]; Protocol Stop: 01/16/23 08:59 Last Admin: 12/18/22 08:23 Dose: 5 mg Documented By: Admin: 12/17/22 09:17 Dose: 5 mg Documented By: ROWDY Formoterol Fumarate (Formoterol 20 Mcg/2 Ml Vial) 20 mcg NEB NOW STA Stop: 12/16/22 13:14 Last Admin: 12/16/22 15:04 Dose: Not Given Documented By: ROWDY Formoterol Fumarate (Formoterol 20 Mcg/2 Ml Vial) 20 mcg NEB BIDR HEMANT Stop: 01/15/23 18:59 Last Admin: 12/18/22 06:57 Dose: 20 mcg Documented By: Admin: 12/17/22 19:30 Dose: 20 mcg Documented By: Admin: 12/17/22 06:53 Dose: 20 mcg Documented By: Admin: 12/16/22 19:45 Dose: 20 mcg Documented By: NATALIA Furosemide (Furosemide 20 Mg Tab) 20 mg PO DAILY [facility] Stop: 01/16/23 08:59 Last Admin: 12/18/22 08:23 Dose: 20 mg Documented By: Admin: 12/17/22 09:18 Dose: 20 mg Documented By: ROWDY Ampicillin Sodium/Sulbactam Sodium 3,000 mg/ Sodium Chloride 108 mls @ 200 mls/hr IV Q6H [facility]; Protocol Stop: 12/23/22 12:00 Last Infusion: 12/18/22 09:58 Dose: 0 mls/hr Documented By: Admin: 12/18/22 09:24 Dose: 200 mls/hr Documented By: Infusion: 12/18/22 04:00 Dose: 0 mls/hr Documented By: Admin: 12/18/22 03:19 Dose: 200 mls/hr Documented By: Infusion: 12/17/22 21:58 Dose: 0 mls/hr Documented By: Admin: 12/17/22 21:23 Dose: 200 mls/hr Documented By: Infusion: 12/17/22 17:36 Dose: 0 mls/hr Documented By: Admin: 12/17/22 16:59 Dose: 200 mls/hr Documented By: Infusion: 12/17/22 10:00 Dose: 0 mls/hr Documented By: Admin: 12/17/22 09:19 Dose: 200 mls/hr Documented By: Infusion: 12/17/22 05:24 Dose: 0 mls/hr Documented By: Admin: 12/17/22 04:48 Dose: 200 mls/hr Documented By: Infusion: 12/16/22 23:02 Dose: 0 mls/hr Documented By: Admin: 12/16/22 22:15 Dose: 200 mls/hr Documented By: Infusion: 12/16/22 17:06 Dose: 0 mls/hr Documented By: Admin: 12/16/22 16:25 Dose: 200 mls/hr Documented By: ROWDY Methylprednisolone 40 mg/ (Syringe) 0.64 mls @ 1.5 mls/min IV DAILY HEMANT Stop: 01/16/23 08:59 Last Admin: 12/18/22 08:23 Dose: 1.5 mls/min Documented By: Admin: 12/17/22 09:17 Dose: 1.5 mls/min Documented By: ROWDY Insulin Aspart (Insulin Aspart Per Unit Charge) 0 units SC ACHS HEMANT Stop: 01/15/23 16:29 Last Admin: 12/18/22 12:07 Dose: 4 units Documented By: KATIA Co-signed By: ALBERT Admin: 12/18/22 08:22 Dose: 2 units Documented By: KATIA Co-signed By: ALBERT Admin: 12/17/22 21:23 Dose: 4 units Documented By: Co-signed By: USMAN Admin: 12/17/22 17:55 Dose: 5 units Documented By: ROWDY Co-signed By: JUNITO Admin: 12/17/22 12:16 Dose: 4 units Documented By: ROWDY Co-signed By: JUNITO Admin: 12/17/22 09:15 Dose: 4 units Documented By: ROWDY Co-signed By: JUNITO Admin: 12/16/22 22:14 Dose: 4 units Documented By: DION Co-signed By: KIAN Admin: 12/16/22 17:42 Dose: 5 units Documented By: ROWDY Co-signed By: SDA Insulin Aspart (Insulin Aspart Per Unit Charge) 0 units SC 0000 HEMANT Stop: 12/17/22 00:01 Last Admin: 12/17/22 01:24 Dose: Not Given Documented By: DION Insulin Glargine (Lantus Per Unit Charge) 15 units SQ DAILY HEMANT Stop: 01/15/23 15:59 Last Admin: 12/17/22 09:15 Dose: 15 units Documented By: ROWDY Co-signed By: JUNITO Admin: 12/16/22 17:42 Dose: 15 units Documented By: ROWDY Co-signed By: OPAL Insulin Glargine (Lantus Per Unit Charge) 12 units SQ DAILY HEMANT Stop: 01/17/23 08:59 Last Admin: 12/18/22 08:22 Dose: 12 units Documented By: KATIA Co-signed By: ALBERT Ioversol (Optiray 320 125ml) 118 ml IV ONCE ONE Stop: 12/16/22 10:57 Last Admin: 12/16/22 10:56 Dose: 118 ml Documented By: IBRAHIMA Lisinopril (Lisinopril 20 Mg Tab) 20 mg PO BID HEMANT Stop: 01/15/23 20:59 Last Admin: 12/18/22 08:23 Dose: 20 mg Documented By: Admin: 12/17/22 21:21 Dose: 20 mg Documented By: Admin: 12/17/22 09:16 Dose: 20 mg Documented By: Admin: 12/16/22 22:01 Dose: 20 mg Documented By: DION Magnesium Oxide (Magnesium Oxide 400 Mg Tab) 400 mg PO QAM HEMANT Stop: 01/16/23 08:59 Last Admin: 12/18/22 08:23 Dose: 400 mg Documented By: Admin: 12/17/22 09:18 Dose: 400 mg Documented By: ROWDY Methylprednisolone (Methylprednisolone 40 Mg/Ml Vial) 40 mg IV NOW STA Stop: 12/16/22 09:51 Last Admin: 12/16/22 10:21 Dose: 40 mg Documented By: PETE Metoprolol Tartrate (Metoprolol Tartrate 25 Mg Tab) 25 mg PO NOW STA Stop: 12/16/22 13:22 Last Admin: 12/16/22 15:59 Dose: Not Given Documented By: ROWDY Metoprolol Tartrate (Metoprolol Tartrate 25 Mg Tab) 25 mg PO BID HEMANT Stop: 01/15/23 20:59 Last Admin: 12/18/22 08:23 Dose: 25 mg Documented By: Admin: 12/17/22 21:22 Dose: 25 mg Documented By: Admin: 12/17/22 09:16 Dose: 25 mg Documented By: Admin: 12/16/22 22:02 Dose: 25 mg Documented By: [facility] Potassium Chloride (Potassium Chloride 10 Meq Tabcr) 10 meq PO QAM HEMANT Stop: 01/16/23 08:59 Last Admin: 12/18/22 08:23 Dose: 10 meq Documented By: Admin: 12/17/22 09:18 Dose: 10 meq Documented By: [facility] Pravastatin Sodium (Pravastatin Sod 40 Mg Tab) 40 mg PO HS HEMANT Stop: 01/15/23 20:59 Last Admin: 12/17/22 21:22 Dose: 40 mg Documented By: Admin: 12/16/22 22:01 Dose: 40 mg Documented By: [facility] Rivaroxaban (Rivaroxaban 20 Mg Tab) 20 mg PO QDD HEMANT Stop: 01/15/23 16:29 Last Admin: 12/17/22 17:01 Dose: 20 mg Documented By: [facility] Admin: 12/16/22 16:25 Dose: 20 mg Documented By: [facility] [place] Tamsulosin HCl (Tamsulosin Hcl 0.4 Mg Cap) 0.8 mg PO HS HEMANT Stop: 01/15/23 20:59 Last Admin: 12/17/22 21:22 Dose: 0.8 mg Documented By: Admin: 12/16/22 22:01 Dose: 0.8 mg Documented By: [facility] Imaging Data Radiologist's Impression: Chest X-Ray 12/16/22 09:17 XR chest 1V portable HISTORY: 82 years-old Male Dyspnea acute shortness of breath COMPARISON: 07/15/2022, 03/31/2022 TECHNIQUE: AP view of the chest FINDINGS: Cardiac mediastinal and hilar silhouettes are unchanged. Subcentimeter calcified granuloma of the right upper lobe. Azygous lobe and fissure. Chronic right hemidiaphragmatic elevation. No pneumothorax, pleural effusion, airspace consolidation or pulmonary edema. Spondylotic spurring of the spine. IMPRESSION: No acute process. ACT 112: Negative or not required by law. The above report was generated using voice recognition software. It may contain grammatical, syntax or spelling errors. Electronically signed by: Molina Samuel M.D. 12/16/2022 10:09 AM Chest CTA 12/16/22 10:33 CT angio chest PE protocol CLINICAL HISTORY: PE vs PNA, cough, pain R side TECHNIQUE: Multidetector row helical CT of the chest was performed with angiographic protocol. Coronal and sagittal reformations were obtained. Coronal and sagittal MIPS were obtained from the axial data set and were submitted for review. Automated dose lowering techniques and/or adjustment according to patient size were utilized for this exam. CT DOSE: 764.85 mGy.cm Comparison: Comparison is made to CTA chest 03/31/2022 FINDINGS: Lungs and pleura: Atelectasis versus scarring is seen in the dependent portions of the lungs. Bronchial wall thickening is seen. Calcified granulomata are seen. Atelectasis is seen in the lower lungs. Heart and pericardium: Heart size is normal. No pericardial effusion. Vessels: No evidence of pulmonary embolism. There is mild atherosclerotic disease. Mediastinum and veronique: Subcentimeter lymph nodes are seen. Chest wall and lower neck: Unremarkable. Abdomen: Unremarkable. Bones: Degenerative changes in the thoracic spine. IMPRESSION: No acute abnormality and in particular no evidence of pulmonary embolus. ACT 112: Negative or not required by law. Electronically signed by: Rell Almazan M.D. 12/16/2022 11:08 AM Discharge Plan Visit Data Chief Complaint: Shortness of Breath/Dyspnea Stated Complaint: REF BY DOC; TIGHTNESS IN CHEST, SOB ED Provider: Kalli Walker Discharge Problem: Respiratory failure with hypoxia, Leukocytosis Patient Disposition: Admitted As Inpatient Discharge Instructions Interventions: ED Discharge Assessment Last Done: 12/16/22 14:27
[2022-12-16] MEDS: RIVAROXABAN 20 MG TAB PO SCH (16:25)
[2022-12-16] MEDS: AMPICILLIN/SULBACTAM SOD 3,000 MG in 0.9 % SODIUM CHLORIDE 100 ML IV SCH ×2 (16:25→22:15)
[2022-12-16] MEDS: LANTUS PER UNIT CHARGE SQ SCH (17:42)
[2022-12-16] MEDS: INSULIN ASPART PER UNIT CHARGE SC SCH ×2 (17:42→22:14)
[2022-12-16] MEDS: BUDESONIDE 0.5 MG/2 ML VIAL (PULMICORT) NEB SCH (19:45)
[2022-12-16] MEDS: FORMOTEROL 20 MCG/2 ML VIAL NEB SCH (19:45)
[2022-12-16] MEDS ORDERED: LANTUS PER UNIT CHARGE SQ SCH (21:00)
[2022-12-16] MEDS: PRAVASTATIN SOD 40 MG TAB PO SCH (22:01)
[2022-12-16] MEDS: lisinopril 20 MG TAB PO SCH (22:01)
[2022-12-16] MEDS: FAMOTIDINE 40 MG TABLET PO SCH (22:01)
[2022-12-16] MEDS: TAMSULOSIN HCL 0.4 MG CAP PO SCH (22:01)
[2022-12-16] MEDS: METOPROLOL TARTRATE 25 MG TAB PO SCH (22:02)
[2022-12-17] MEDS ORDERED: INSULIN ASPART PER UNIT CHARGE SC SCH
[2022-12-17] MEDS: AMPICILLIN/SULBACTAM SOD 3,000 MG in 0.9 % SODIUM CHLORIDE 100 ML IV SCH ×4 (04:48→21:23)
[2022-12-17 06:45] LABS: Basophils # (auto) 0.02 K/uL (0-0.2); Basophils % (auto) 0.1 %; Hematocrit (blood only) 38.8 % (42.0-52.0); Hemoglobin 13.4 g/dl (14.0-18.0); Immature Granulocytes # (auto) 0.06 K/uL (0.01-0.20); Immature Granulocytes % (auto) 0.4 %; Lymphocytes # (auto) 1.79 K/uL (1.2-3.4); Lymphocytes % (auto) 11.1 %; Mean Corpuscular Hemoglobin 31.3 pg (25.0-34.0); Mean Corpuscular Hgb Conc 34.5 g/dL (32.0-36.0); Mean Corpuscular Volume 90.7 fL (80.0-100.0); Mean Platelet Volume 10.3 fL (9.4-12.4); Monocytes # (auto) 1.69 K/uL (0.11-0.59); Monocytes % (auto) 10.5 %; Neutrophils % (auto) 77.9 %; Platelet Count 186 K/uL (130-400); RDW Coefficient of Variation 14.1 % (11.5-14.5); RDW Standard Deviation 46.8 fL (36.4-46.3); Red Blood Count 4.28 M/uL (4.70-6.10); White Blood Count 16.16 K/ul (4.8-10.8)
[2022-12-17] MEDS: FORMOTEROL 20 MCG/2 ML VIAL NEB SCH ×2 (06:53→19:30)
[2022-12-17] MEDS: ALBUT/IPRATROP 3MG/0.5MG NEB 3 ML VIAL NEB SCH ×4 (06:53→19:31)
[2022-12-17] MEDS: BUDESONIDE 0.5 MG/2 ML VIAL (PULMICORT) NEB SCH ×2 (06:53→19:31)
[2022-12-17 07:00] LABS: BUN Creatinine Ratio 31.5 (10-20); Calcium 8.6 mg/dl (8.6-10.3); Creatinine Clr Calc Pharmacy 53.6 ml/min; Est GFR (African American) 74.2 ml/min; Potassium 3.9 mmol/L (3.5-5.1)
[2022-12-17] MEDS: LANTUS PER UNIT CHARGE SQ SCH (09:15)
[2022-12-17] MEDS: INSULIN ASPART PER UNIT CHARGE SC SCH ×4 (09:15→21:23)
[2022-12-17] MEDS: FAMOTIDINE 40 MG TABLET PO SCH ×2 (09:16→21:22)
[2022-12-17] MEDS: lisinopril 20 MG TAB PO SCH ×2 (09:16→21:21)
[2022-12-17] MEDS: METOPROLOL TARTRATE 25 MG TAB PO SCH ×2 (09:16→21:22)
[2022-12-17] MEDS: AZITHROMYCIN 250 MG TAB PO SCH (09:17)
[2022-12-17] MEDS: methylPREDNISolone 40 MG in SYRINGE 0 ML IV SCH (09:17)
[2022-12-17] MEDS: FINASTERIDE 5 MG TAB PO SCH (09:17)
[2022-12-17] MEDS: FUROSEMIDE 20 MG TAB PO SCH (09:18)
[2022-12-17] MEDS: MAGNESIUM OXIDE 400 MG TAB PO SCH (09:18)
[2022-12-17] MEDS: FEXOFENADINE HCL 180 MG TAB PO SCH (09:18)
[2022-12-17] MEDS: POTASSIUM CHLORIDE 10 MEQ TABCR PO SCH (09:18)
--- NOTE | 2022-12-17 14:05 | Electrocardiogram Report ---
Test Reason : Blood Pressure : / mmHG Vent. Rate : 079 BPM Atrial Rate : 000 BPM P-R Int : 000 ms QRS Dur : 136 ms QT Int : 500 ms P-R-T Axes : 000 269 056 degrees QTc Int : 573 ms Atrial fibrillation Right bundle branch block Abnormal ECG When compared with ECG of 15-JUL-2022 14:29, ST elevation now present in Lateral leads Nonspecific T wave abnormality, improved in Inferior leads QT has lengthened Confirmed by Jus Francis ([id number]) on 12/17/2022 2:05:23 PM Referred By: Babar Underwood Confirmed By:Jus Francis
--- NOTE | 2022-12-17 14:10 | Electrocardiogram Report ---
Test Reason : Blood Pressure : / mmHG Vent. Rate : 081 BPM Atrial Rate : 170 BPM P-R Int : 000 ms QRS Dur : 138 ms QT Int : 476 ms P-R-T Axes : 000 -85 054 degrees QTc Int : 552 ms Atrial fibrillation Left axis deviation Right bundle branch block Abnormal ECG When compared with ECG of 16-DEC-2022 09:24, (unconfirmed) No significant change was found Confirmed by Jus Francis ([id number]) on 12/17/2022 2:09:54 PM Referred By: Babar Underwood Confirmed By:Jus Francis
[2022-12-17] MEDS: RIVAROXABAN 20 MG TAB PO SCH (17:01)
[2022-12-17] MEDS: TAMSULOSIN HCL 0.4 MG CAP PO SCH (21:22)
[2022-12-17] MEDS: PRAVASTATIN SOD 40 MG TAB PO SCH (21:22)
--- NOTE | 2022-12-17 22:25 | Hospitalist Progress Note ---
Date of Service December 17, 2022 Assessment & Plan (1) Hypoxia: Plan: -Admit to med/tele on continuous pulse oximetry Patient initially stable on 2 liters nasal cannula, now back on room air. -viral workup isnegative. -will reat for possible atpical pneumonia vs COPD exacerbation or reactive airway disease. Patient will need an outpatient PFT. continue azithromycin. -Will start BID Budesonide and formoterol Nebulizer treatments with QIDR DuoNebs as well -received solumedrol. -Incentive spirometry and flutter therapy -Patient should have outpatient PFT's scheduled in 3-4 weeks after discharge for further evaluation -PRN O2 to keep SpO2 at or above 94%, titrate to RA as able -Home Xarelto for DVT PPX -awaiting sputum culture (2) Chest tightness: Plan: -Patient has been experiencing mild-moderate chest tightness on inspiration only since last night -Chest tightness have been central and non-radiating -Has experiencing significant improvement since receiving DuoNebs in the ED -High sen trop WNL, no acute ST segment or T-wave changes on ECG, no PE on CTA chest -Likely due to his reactive airway disease -Continue to monitor for improvement with current treatment plan -Continue to monitor on tele (3) Type 2 diabetes mellitus: Plan: -Hold metformin -Monitor BSG ACHS, goal is 110-160 -7 units lantus BID, CF 50, CR of 15 -HH, DMII diet -Pharmacy glycemic consult placed due to increased chance of hyperglycemia with systemic steroids (4) Essential hypertension: Plan: -Stable -Continue lisinopril and lasix (5) Hyperlipidemia: Plan: -Continue pravastatin (6) Atrial fibrillation: Plan: -Stable -Continue Xarelto and metoprolol (7) BPH with obstruction/lower urinary tract symptoms: Plan: -Continue flomax (8) Pneumonia: Admission and Anticipated Discharge Date Admission Date: December 16, 2022 Subjective 82 yo male reports feeling better. Patient reports he is not back to his baseline, but feels immensely better than yesterday. He is breathing better. Review of Systems Review of Systems: All systems reviewed & are unremarkable except as noted in HPI & below Physical Exam Physical Exam: General: In no acute distress, stated age, well-nourished, good hygiene HEENT: Normocephalic, atraumatic, no scleral icterus, pupils around round, symmetrical, and reactive to light, moist mucus membranes, negative tenderness to palpation of the frontal and maxillary sinuses, trachea midline, no thyromegaly Chest/Pulm: No respiratory distress, symmetrical chest expansion, minimal wheezing. Cardiac: irregular rate and rhythm, no murmurs noted Abdomen: Negative for ascites and bruising, normoactive bowel sounds, soft, non-tender to palpation throughout Musculoskeletal: Symmetrical and without signs of acute trauma, upper and lower extremities with full ROM, no atrophy, spasticity, or flaccidity Extremities: Radial, dorsalis pedis, and posterior tibial pulses are intact and symmetrical, no edema noted in the BL LE's Skin: Warm, dry, no rashes , lesions, or scars noted Neuro: Alert and oriented to person, place, month, year, and president, no focal defects, no tremors noted Psych: No acute distress, calm and cooperative during the exam Results & Data Results & Data Vital Signs (Past 12 Hours) Vital Signs Temp Pulse Pulse Resp BP Pulse Ox O2 Del Method 12/17/22 19:56 36.6 C 88 18 114/67 91 Room Air 12/17/22 19:32 80 18 91 Room Air 12/17/22 14:01 60 12/17/22 17:16 36.6 C 77 18 121/67 91 Room Air 12/17/22 16:27 73 14 93 Room Air 12/17/22 11:14 36.6 C 63 20 109/67 98 Nebulizer 12/17/22 11:08 66 17 93 Room Air FiO2 12/17/22 19:56 12/17/22 19:32 12/17/22 14:01 12/17/22 17:16 12/17/22 16:27 21 12/17/22 11:14 12/17/22 11:08 PG Care Time/CCT Total # of Minutes Spent Total Time Spent with Patient: Total time spent is greater than 50% in coordination of care (as documented) at patient's floor/unit and/or counseling patient: Coding Level of Care Code 29170 SUB INP/OBS CARE 2/35MIN Diagnoses Hypoxia R09.02 Chest tightness R07.89 Type 2 diabetes mellitus E11.9 Diabetes mellitus complication status: without complication Diabetes mellitus care home insulin use: without care home use Essential hypertension I10 Hyperlipidemia E78.00; E78.0 Hyperlipidemia type: pure hypercholesterolemia Atrial fibrillation I48.0 Atrial fibrillation type: paroxysmal BPH with obstruction/lower urinary tract symptoms N40.1; N13.8 Pneumonia J18.9 (3) Type 2 diabetes mellitus Diabetes mellitus complication status: without complication Diabetes mellitus technician terminal and repeater insulin use: without care home use Qualified Code(s): E11.9 - Type 2 diabetes mellitus without complications (5) Hyperlipidemia Hyperlipidemia type: pure hypercholesterolemia Qualified Code(s): E78.00 - Pure hypercholesterolemia, unspecified; E78.0 - Pure hypercholesterolemia (6) Atrial fibrillation Atrial fibrillation type: paroxysmal Qualified Code(s): I48.0 - Paroxysmal atrial fibrillation
[2022-12-18] MEDS: AMPICILLIN/SULBACTAM SOD 3,000 MG in 0.9 % SODIUM CHLORIDE 100 ML IV SCH ×2 (03:19→09:24)
[2022-12-18] MEDS: BUDESONIDE 0.5 MG/2 ML VIAL (PULMICORT) NEB SCH (06:57)
[2022-12-18] MEDS: FORMOTEROL 20 MCG/2 ML VIAL NEB SCH (06:57)
[2022-12-18] MEDS: ALBUT/IPRATROP 3MG/0.5MG NEB 3 ML VIAL NEB SCH (06:57)
[2022-12-18 07:07] LABS: Basophils # (auto) 0.02 K/uL (0-0.2); Basophils % (auto) 0.1 %; Eosinophils # (auto) 0.01 K/uL (0-0.50); Eosinophils % (auto) 0.1 %; Hematocrit (blood only) 39.5 % (42.0-52.0); Hemoglobin 13.3 g/dl (14.0-18.0); Immature Granulocytes # (auto) 0.09 K/uL (0.01-0.20); Immature Granulocytes % (auto) 0.6 %; Lymphocytes # (auto) 2.29 K/uL (1.2-3.4); Lymphocytes % (auto) 14.5 %; Mean Corpuscular Hemoglobin 30.9 pg (25.0-34.0); Mean Corpuscular Hgb Conc 33.7 g/dL (32.0-36.0); Mean Corpuscular Volume 91.9 fL (80.0-100.0); Mean Platelet Volume 9.9 fL (9.4-12.4); Monocytes # (auto) 1.34 K/uL (0.11-0.59); Monocytes % (auto) 8.5 %; Neutrophils # (auto) 12.01 K/uL (1.40-6.50); Neutrophils % (auto) 76.2 %; Platelet Count 203 K/uL (130-400); RDW Coefficient of Variation 14.1 % (11.5-14.5); RDW Standard Deviation 47.8 fL (36.4-46.3); White Blood Count 15.76 K/ul (4.8-10.8)
[2022-12-18 07:21] LABS: BUN Creatinine Ratio 39.8 (10-20); C Reactive Protein 10.87 mg/dl (0-0.5); Calcium 8.8 mg/dl (8.6-10.3); Creatinine Clr Calc Pharmacy 62.3 ml/min; Est GFR (African American) 88.9 ml/min; Est GFR (Non-African American) 76.7 ml/min; Potassium 4.1 mmol/L (3.5-5.1)
[2022-12-18] MEDS: INSULIN ASPART PER UNIT CHARGE SC SCH ×2 (08:22→12:07)
[2022-12-18] MEDS: methylPREDNISolone 40 MG in SYRINGE 0 ML IV SCH (08:23)
[2022-12-18] MEDS: AZITHROMYCIN 250 MG TAB PO SCH (08:23)
[2022-12-18] MEDS: MAGNESIUM OXIDE 400 MG TAB PO SCH (08:23)
[2022-12-18] MEDS: FINASTERIDE 5 MG TAB PO SCH (08:23)
[2022-12-18] MEDS: FEXOFENADINE HCL 180 MG TAB PO SCH (08:23)
[2022-12-18] MEDS: FUROSEMIDE 20 MG TAB PO SCH (08:23)
[2022-12-18] MEDS: FAMOTIDINE 40 MG TABLET PO SCH (08:23)
[2022-12-18] MEDS: lisinopril 20 MG TAB PO SCH (08:23)
[2022-12-18] MEDS: METOPROLOL TARTRATE 25 MG TAB PO SCH (08:23)
[2022-12-18] MEDS: POTASSIUM CHLORIDE 10 MEQ TABCR PO SCH (08:23)
[2022-12-18] MEDS ORDERED: LANTUS PER UNIT CHARGE SQ SCH (09:00)
[2022-12-18] MEDS ORDERED: ALBUTEROL 0.083% NEBU SOLN 3 ML VIAL NEB PRN (09:39)
--- NOTE | 2022-12-18 09:52 | Hospitalist Progress Note ---
Date of Service December 18, 2022 Assessment & Plan (1) Hypoxia: Plan: -Admit to med/tele on continuous pulse oximetry Patient initially stable on 2 liters nasal cannula, now back on room air. -viral workup is negative. -will treat for possible atpical pneumonia vs COPD exacerbation or reactive airway disease. Patient will need an outpatient PFT. continue azithromycin, will transtiion IV antibiotics amp/sulbactam to cefuroxime -Will start BID Budesonide and formoterol will stop Duonebs and place on albuterol nebs PRN. -received solumedrol will transition to PO. -Incentive spirometry and flutter therapy -Patient should have outpatient PFT's scheduled in 3-4 weeks after discharge for further evaluation -PRN O2 to keep SpO2 at or above 94%, titrate to RA as able -Home Xarelto for DVT PPX -awaiting sputum culture (2) Chest tightness: Plan: -Patient has been experiencing mild-moderate chest tightness on inspiration only since last night -Chest tightness have been central and non-radiating -Has experiencing significant improvement since receiving DuoNebs in the ED -High sen trop WNL, no acute ST segment or T-wave changes on ECG, no PE on CTA chest -Likely due to his reactive airway disease -Continue to monitor for improvement with current treatment plan -Continue to monitor on tele (3) Type 2 diabetes mellitus: Plan: -Hold metformin -Monitor BSG ACHS, goal is 110-160 -7 units lantus BID, CF 50, CR of 15 -HH, DMII diet -Pharmacy glycemic consult placed due to increased chance of hyperglycemia with systemic steroids (4) Essential hypertension: Plan: -Stable -Continue lisinopril and lasix (5) Hyperlipidemia: Plan: -Continue pravastatin (6) Atrial fibrillation: Plan: -Stable -Continue Xarelto and metoprolol (7) BPH with obstruction/lower urinary tract symptoms: Plan: -Continue flomax (8) Pneumonia: Admission and Anticipated Discharge Date Admission Date: December 16, 2022 Subjective 82 yo male reports feeling better, but is wary about discharge. He still does not feel 100%. Patient is coughing but reports no significant sputum production Review of Systems Review of Systems: All systems reviewed & are unremarkable except as noted in HPI & below Physical Exam Physical Exam: General: In no acute distress, stated age, well-nourished, good hygiene HEENT: Normocephalic, atraumatic, no scleral icterus, pupils around round, symmetrical, and reactive to light, moist mucus membranes, negative tenderness to palpation of the frontal and maxillary sinuses, trachea midline, no thyromegaly Chest/Pulm: No respiratory distress, symmetrical chest expansion, no wheezing, mild crackles heard at bases. Cardiac: irregular rate and rhythm, no murmurs noted Abdomen: Negative for ascites and bruising, normoactive bowel sounds, soft, non-tender to palpation throughout Musculoskeletal: Symmetrical and without signs of acute trauma, upper and lower extremities with full ROM, no atrophy, spasticity, or flaccidity Extremities: Radial, dorsalis pedis, and posterior tibial pulses are intact and symmetrical, no edema noted in the BL LE's Skin: Warm, dry, no rashes , lesions, or scars noted Neuro: Alert and oriented to person, place, month, year, and president, no focal defects, no tremors noted Psych: No acute distress, calm and cooperative during the exam Results & Data Results & Data Vital Signs (Past 12 Hours) Vital Signs Temp Pulse Pulse Resp BP Pulse Ox O2 Del Method 12/18/22 08:30 Room Air 12/18/22 07:26 36.5 C 66 18 130/76 92 Room Air 12/18/22 06:59 79 17 92 Room Air 12/18/22 03:02 36.4 C L 55 L 16 111/65 92 Room Air 12/17/22 22:00 73 12/17/22 22:56 36.4 C L 63 18 136/62 93 Room Air PG Care Time/CCT Total # of Minutes Spent Total Time Spent with Patient: Total time spent is greater than 50% in coordination of care (as documented) at patient's floor/unit and/or counseling patient: Coding Level of Care Code 67897 SUB INP/OBS CARE 2/35MIN Diagnoses Hypoxia R09.02 Chest tightness R07.89 Type 2 diabetes mellitus E11.9 Diabetes mellitus intermediate insulin use: without intermediate manager use Diabetes mellitus complication status: without complication Essential hypertension I10 Hyperlipidemia E78.00; E78.0 Hyperlipidemia type: pure hypercholesterolemia Atrial fibrillation I48.0 Atrial fibrillation type: paroxysmal BPH with obstruction/lower urinary tract symptoms N40.1; N13.8 Pneumonia J18.9 (3) Type 2 diabetes mellitus Diabetes mellitus intermediate insulin use: without intermediate use Diabetes mellitus complication status: without complication Qualified Code(s): E11.9 - Type 2 diabetes mellitus without complications (5) Hyperlipidemia Hyperlipidemia type: pure hypercholesterolemia Qualified Code(s): E78.00 - Pure hypercholesterolemia, unspecified; E78.0 - Pure hypercholesterolemia (6) Atrial fibrillation Atrial fibrillation type: paroxysmal Qualified Code(s): I48.0 - Paroxysmal atrial fibrillation
--- NOTE | 2022-12-18 10:15 | XRay Report ---
XR chest 2V PA/lateral CLINICAL HISTORY: hypoxia TECHNIQUE: 2 views of the chest were obtained. Comparison: Comparison is made to chest radiograph 12/16/2022 FINDINGS: No lines and tubes are seen. Calcified aortic knob is seen. Right lower lung airspace opacity is seen . Trace bilateral pleural effusions are seen. IMPRESSION: 1. Right lower lung airspace opacity which may represent atelectasis, pneumonia, and/or aspiration. 2. Trace bilateral pleural effusions. ACT 112: Negative or not required by law. Electronically signed by: Rell Almazan M.D. 12/18/2022 10:14 AM
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
[2022-12-18] MEDS ORDERED: cefUROXime axetil 500 MG TAB PO SCH (13:00)
[2022-12-19] MEDS ORDERED: predniSONE 20 MG TAB PO SCH (09:00)
== END 2022-12-18 13:35 | disposition home or self-care (01) | DRG 193 ==
LOC: ED 08:58 → 2N 12:49 → SUATTDRO 12:49 → 2N 14:27